=== PATIENT | female | born 1990 | race Two or more races ===

== ENCOUNTER 2021-12-17 18:38 | Emergency (ER) | payer OTHER ==
[~2021-12-17] VITALS: Ht 157.5 cm; Wt 64.4 kg
== END 2021-12-17 21:24 | disposition home or self-care (01) ==
LOC: ER 18:38
DX: O20.8 Other hemorrhage in early pregnancy (principal); O34.11 Maternal care for benign tumor of corpus uteri, first trimester; Z3A.01 Less than 8 weeks gestation of pregnancy

== ENCOUNTER 2024-11-10 07:00 | Day surgery (SDC) | payer OTHER ==
[2024-11-10] MEDS ORDERED: MIDAZOLAM HCL 2 MG/2 ML VIAL IV ONE (12:00)
[2024-11-10] MEDS ORDERED: fentaNYL CITRATE 50 MCG/ML AMPUL IV PUSH ONE (12:00)
[2024-11-10] MEDS ORDERED: DIPHENHYDRAMINE HCL 50 MG/ML VIAL 1ML IV ONE (12:00)
== END 2024-11-10 12:55 | disposition home or self-care (01) ==
LOC: AMB-ENDOS 07:00
PROVIDERS: ATTEND Colon & Rectal Surgery
DX: K63.5 Polyp of colon (principal); R19.4 Change in bowel habit